=== PATIENT | male | born 2000 | race Hispanic/Latino ===

== ENCOUNTER 2021-05-14 10:06 | Emergency (ER) | payer OTHER ==
[~2021-05-14] VITALS: Ht 175.3 cm; Wt 136.1 kg
[2021-05-14] MEDS ORDERED: IBUPROFEN600 MG PO (10:18)
[2021-05-14] MEDS ORDERED: BROMFED DM COU118 ML PO (10:18)
[2021-05-14] MEDS ORDERED: MEDROL4 MG/DOSE- PO (10:18)
== END 2021-05-14 10:35 | disposition home or self-care (01) ==
LOC: ER 10:34
DX: U07.1 COVID-19 (principal); R50.9 Fever, unspecified; R05.9 Cough, unspecified
CPT/HCPCS: 99282